=== PATIENT | male | born 2000 | race Caucasian/White ===

== ENCOUNTER 2023-06-27 06:30 | Inpatient (IN) | payer MEDICAID ==
[2023-06-27] MEDS ORDERED: LORazepam 2 MG/ML SDV ONE (06:40)
[2023-06-27] MEDS ORDERED: Haloperidol Lactate 5 MG/ML SDV ONE ×2 (06:40→12:35)
[2023-06-27] MEDS ORDERED: Sodium Chloride 0.9% 10 ML Syringe FLUSH PRN ×2 (06:41→13:02)
[2023-06-27] MEDS ORDERED: LORazepam 2 MG/ML SDV IM ONE (06:42)
[2023-06-27] MEDS ORDERED: Haloperidol Lactate 5 MG/ML SDV IM ONE (06:42)
[2023-06-27] MEDS ORDERED: Haloperidol Lactate 5 MG/ML SDV IVPUSH ONE ×2 (07:02→07:08)
[2023-06-27 07:07] LABS: BASOPHILS ABSOLUTE AUTO 0.1 K/mm3 (0.0-0.2); EOSINOPHILS ABSOLUTE AUTO 0.6 K/mm3 (0.0-0.4); EOSINOPHILS PERCENT AUTO 7.2 % (0.0-6.0); HEMOGLOBIN 16.1 gm/dl (14.0-18.0); IMMATURE GRAN ABSOLUTE AUTO 0.02 K/mm3 (0.00-0.05); IMMATURE GRAN PERCENT AUTO 0.2 % (0.0-0.4); LYMPHOCYTES ABSOLUTE AUTO 3.4 K/mm3 (1.0-4.8); LYMPHOCYTES PERCENT AUTO 38.1 % (24.0-44.0); MEAN CORPUSCULAR HEMOGLOBIN 29.4 pg (28.0-32.0); MEAN CORPUSCULAR HGB CONC 34.3 g/dl (32.0-36.0); MEAN CORPUSCULAR VOLUME 85.8 fl (83.0-99.0); MEAN PLATELET VOLUME 9.2 fl (9.4-12.4); MONOCYTES ABSOLUTE AUTO 0.7 K/mm3 (0.0-0.8); MONOCYTES PERCENT AUTO 8.1 % (0.0-8.0); NEUTROPHILS PERCENT AUTO 45.4 % (41.0-71.0); PLATELET COUNT,PLT 221 K/mm3 (150-400); RED BLOOD CELL COUNT 5.48 M/mm3 (4.52-5.90); WHITE BLOOD CELL COUNT,WBC 8.88 K/mm3 (3.9-11.3)
[2023-06-27 07:31] LABS: A/G RATIO 1.5 (1-2); ALANINE AMINOTRANSFERASE,ALT 30 U/L (16-63); ALBUMIN 4.3 g/dl (3.4-5.0); ALKALINE PHOSPHATASE 63 U/L (46-116); ANION GAP 17.1 (5-15); ASPARTATE AMNIOTRANSFERASE,AST 20 U/L (15-37); BILIRUBIN TOTAL 0.4 mg/dL (0.2-1.0); BLOOD UREA NITROGEN,BUN 14 mg/dL (7-18); BUN/CREATININE RATIO 11.7 (14-18); CALCIUM 9.1 mg/dL (8.5-10.1); CARBON DIOXIDE,CO2 24 mEq/L (21-32); CHLORIDE,CL 106 mEq/L (98-107); CREATININE 1.2 mg/dL (0.7-1.3); ESTIMATED GFR 88 mL/min (>60); GLUCOSE RANDOM 150 mg/dL (70-99); POTASSIUM,K 3.1 mEq/L (3.5-5.1); PROTEIN TOTAL,TP 7.2 g/dl (6.4-8.2); SODIUM,NA 144 mEq/L (136-145)
[2023-06-27 07:33] LABS: INR 1.04; PROTHROMBIN TIME 11.1 SECONDS (9.7-12.0)
[2023-06-27 07:34] LABS: PTT,PARTIAL THROMBOPLSTIN TIME 22.6 SECONDS (21.7-31.4)
[2023-06-27] MEDS ORDERED: Haloperidol Lactate 5 MG/ML SDV IVPUSH STA ×2 (08:26→12:34)
[2023-06-27] MEDS ORDERED: LORazepam 2 MG/ML SDV IVPUSH STA (08:27)
[2023-06-27] MEDS: Potassium Chloride 10 MEQ in Premix Bag 1 BAG IV SCH ×4 (09:29→14:14)
[2023-06-27] MEDS ORDERED: Sodium Chloride 0.9% 1,000 ML IV SCH (09:30)
[2023-06-27 09:35] LABS: BARBITURATE SCREEN,URINE NEGATIVE (CUTOFF=200); BENZODIAZEPINES SCREEN,URINE NEGATIVE (CUTOFF=150); BUPRENORPHINE SCREEN,URINE NEGATIVE (CUTOFF=10); METHADONE SCREEN, URINE NEGATIVE (CUT0FF=200); METHAMPHETAMINES SCREEN, URINE NEGATIVE (CUTOFF=500); OXYCODONE SCREEN,URINE NEGATIVE (CUT0FF=100); PROPOXYPHENE SCREEN,URINE NEGATIVE (CUTOFF=300); THC SCREEN,URINE 20 NG/ML NEGATIVE (CUTOFF=50)
[2023-06-27 09:36] LABS: AMPHETAMINES SCREEN, URINE NEGATIVE (CUTOFF=500)
[2023-06-27] MEDS ORDERED: Ondansetron 4 MG/2 ML SDV IV PRN (11:07)
[2023-06-27] MEDS ORDERED: LORazepam 1 MG Tab PO ONE (12:07)
[2023-06-27] MEDS ORDERED: LORazepam 2 MG/ML SDV IVPUSH ONE (12:07)
[2023-06-27] MEDS ORDERED: levETIRAcetam 2,000 MG in Sodium Chloride 0.9% 100 ML IV ONE (12:25)
[2023-06-27] MEDS ORDERED: Sodium Chloride 0.9% 1,000 ML IV ONE (12:29)
[2023-06-27] MEDS ORDERED: propofoL 100 ML ONE (12:52)
[2023-06-27] MEDS ORDERED: Midazolam 50 MG in Sodium Chloride 0.9% 40 ML IV SCH (13:15)
[2023-06-27] MEDS: propofoL 100 ML IV SCH ×2 (13:20→14:53)
[2023-06-27] MEDS ORDERED: fentaNYL 2,500 MCG in Sodium Chloride 0.9% 200 ML IV SCH ×2 (13:45→13:51)
[2023-06-27] MEDS ORDERED: cefTRIAXone 2 GM in Sodium Chloride 0.9% 100 ML IV SCH (13:45)
[2023-06-27 14:09] LABS: BASE EXCESS ARTERIAL -2.7 (-2-2.0); BICARBONATE,ARTERIAL 21.4 meq/L (22.0-26.0); O2 SATURATION ARTERIAL 99.9 % (96.0-97.0)
[2023-06-27] MEDS ORDERED: VANCOmycin 1.25 GM/250 ML 1.25 GM in Premix Bag 1 BAG IV SCH (14:30)
[2023-06-27] MEDS ORDERED: Etomidate 2 MG/ML 20 ML SDV IVPUSH ONE (14:38)
[2023-06-27] MEDS ORDERED: Rocuronium 50 MG/5 ML Vial IV ONE (14:38)
[2023-06-27] MEDS ORDERED: Sodium Chloride 0.9% 10 ML Syringe FLUSH SCH (21:00)
[2023-06-29 13:46] LABS: HBSAG SCREEN Negative (Negative); HCV AB Non Reactive (Non Reactive); HEP A AB, IGM Negative (Negative); HEP B CORE AB, IGM Negative (Negative)
[2023-06-30 10:46] LABS: LYME TOTAL AB CIA Negative (Negative)
== END 2023-06-27 15:11 | DRG 948 ==
LOC: JD.ED 06:30 → JD.MS 09:51 → JD.ICU 13:17
PROVIDERS: ADMIT Emergency Medicine; ATTEND Emergency Medicine
PROC: 0BH17EZ Insertion of Endotracheal Airway into Trachea, Via Natural or Artificial Opening (ICD-10-PCS; principal; 2023-06-27)
PROC: 5A1935Z Respiratory Ventilation, Less than 24 Consecutive Hours (ICD-10-PCS; 2023-06-27)
PROC: 0D9670Z Drainage of Stomach with Drainage Device, Via Natural or Artificial Opening (ICD-10-PCS; 2023-06-27)
DX: R41.82 Altered mental status, unspecified (principal); E87.6 Hypokalemia; R73.9 Hyperglycemia, unspecified; R00.1 Bradycardia, unspecified; J34.89 Other specified disorders of nose and nasal sinuses; J45.909 Unspecified asthma, uncomplicated; F41.9 Anxiety disorder, unspecified; D32.9 Benign neoplasm of meninges, unspecified; Z88.2 Allergy status to sulfonamides; Z79.899 Other long term (current) drug therapy; Z86.16 Personal history of COVID-19
CPT/HCPCS: 36415; 36600; 51701; 51702; 70450; 70450-26; 71045; 71045-26; 80053; 80074; 80306; 80307; 82390; 82525; 82550; 82803; 83605; 83735; 85025; 85610; 85730; 86592; 86757; 86788; 86789; 87040; 87529; 93005; 93010; 94002; 99283; J0133; J0696; J1630; J1953; J2060; J2250; J2704; J3010; J3370; J3480; J3490; J7030; J7050